=== PATIENT | female | born 2005 | race Caucasian/White ===

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

== ENCOUNTER 2023-02-25 10:12 | Emergency (ER) | payer OTHER, BC, MEDICAID, SELFPAY ==
--- NOTE | 2023-02-25 10:15 | W.ED.ABDPA2 ---
HPI - Abdominal Pain General: Chief Complaint: Urogenital-Female Stated Complaint: ABD PAIN, n/v Time Seen by Provider: 02/25/23 10:13 Source: patient Mode of arrival: ambulatory History of Present Illness: 17-year-old female presents to the emergency room with complaints of low back pain and suprapubic discomfort. She was seen in urgent care they are concerned about a renal stone. She has no hematuria. No fever sweats chills no dysuria urgency or frequency. She has noticed that with movement the pain is worse. No vomiting no diarrhea. MD elicited complaint: abdominal pain Onset (ago): hour(s) Pain Consistency: constant Location: Suprapubic and Other (Lumbosacral region) Severity: moderate Quality: cramping Exacerbating factors: movement Relieving factors: rest Associated Symptoms: Denies anorexia, belching, bloating, change in bowel habits, change in stool character, chills, coffee ground emesis, constipation, GI cramping, diarrhea, dyspepsia, dysuria, excessive flatus, fever(s), heartburn, hematochezia, hematuria, hematemesis, fecal incontinence, loose stools, melena, nausea, poor appetite, syncope and vomiting Review of Systems Const: Denies: fever(s), chills, fatigue or malaise ENMT: Denies: throat pain, ear or mastoid pain, nasal discharge or nasal congestion Card: Denies: chest pain or syncope Resp: Denies: dyspnea, productive cough or non-productive cough GI: Reports: abdominal pain; Denies: nausea, vomiting, hematemesis, coffee ground emesis, heartburn, diarrhea, constipation, bloating, GI cramping, belching, excessive flatus, fecal incontinence, change in bowel habits, change in stool character, hematochezia or melena : Denies: flank pain, difficulty voiding, dysuria, urinary frequency, urinary urgency or hematuria Musc: Reports: back pain Skin/Breast: Denies: rash or pruritus PFSH ED PFSH: Social History Smoking and tobacco status: never smoked Alcohol intake: never Substance/Drug Use: never Physical Exam Const: GENERAL APPEARANCE: cooperative and comfortable ORIENTATION/CONSCIOUSNESS: Yes awake, Yes oriented to person, Yes oriented to place and Yes oriented to time HENMT: COMMON NORMALS: normocephalic, atraumatic and hearing grossly normal bilaterally HEAD & SCALP: normocephalic and atraumatic Resp: COMMON NORMALS: normal respiratory effort, No retractions, No use of accessory muscles and clear to auscultation bilaterally AUSCULTATION: clear to auscultation bilaterally Cardio: COMMON NORMALS: regular rate, regular rhythm and No murmurs present (Cardio) RATE: regular rate RHYTHM: regular rhythm GI: COMMON NORMALS: Soft to palpation and No hepatosplenomegaly present AUSCULTATION: Yes normoactive bowel sounds PALPATION: Yes Soft to palpation, No Tenderness to palpation present (GI), No Guarding due to palpation present (GI) and Yes No hepatosplenomegaly present : COMMON NORMALS: Yes no CVA tenderness BLADDER/KIDNEY EXAM: Yes no CVA tenderness Back/Pelvis: COMMON NORMALS: no CVA tenderness OTHER: Pain in the lumbosacral area mildly reproducible with palpation Extremity: COMMON NORMALS: normal to inspection, capillary refill normal, no clubbing, cyanosis or edema, no calf tenderness and no pedal edema OTHER: Straight leg raising negative sensation lower extremities normal Neuro: SENSORIUM/ORIENTATION: Yes oriented to person, Yes oriented to place and Yes oriented to time Skin: COMMON NORMALS: no rashes or lesions noted GENERAL SKIN EXAM: no rashes or lesions noted OTHER: No evidence of zoster Course Vital Signs: Vital signs: Vital Signs Temperature 99.0 F 02/25/23 10:27 Pulse Rate 75 02/25/23 10:27 Respiratory Rate 18 02/25/23 10:27 Blood Pressure 134/75 02/25/23 10:27 Pulse Oximetry 100 02/25/23 10:27 Oxygen Delivery Me thod Room Air 02/25/23 10:27 MDM - Abdominal Pain Medical Decision Making Laboratories and CT were unremarkable. There is no evidence of acute appendicitis kidney stones kidney infection or bladder infection. No bowel abnormalities or pelvic abnormalities on the CT. She did complain of some low back pain at the lumbosacral junction and think some of this may be musculoskeletal we did not see a significant mount of fluid in the pelvis on the CT. Will discharge home with diclofenac can use ondansetron as needed advance diet as tolerated if not improving follow-up with primary care. Labs and imaging reviewed with the patient. Medical Records I reviewed the patient's medical records. Lab Data I reviewed the patient's lab results. 02/25/23 10:44 02/25/23 10:44 Labs/Radiology: Radiology Impressions Abdomen/Pelvis CT 02/25/23 11:16 IMPRESSION: No acute findings. Laboratory Results WBC 13.0 10^3/uL (4.5-13.0) 02/25/23 10:44 RBC 4.53 10^6/uL (4.1-5.3) 02/25/23 10:44 Hgb 14.1 g/dL (11.5-15.3) 02/25/23 10:44 Hct 43.7 % (37.0-47.0) 02/25/23 10:44 MCV 96.5 fl (81-99) 02/25/23 10:44 MCH 31.1 pg (28.0-34.0) 02/25/23 10:44 MCHC 32.3 g/dL (30.0-36.0) 02/25/23 10:44 RDW 13.1 % (12.1-15.1) 02/25/23 10:44 Plt Count 169 10^3/cmm (130-400) 02/25/23 10:44 MPV 10.7 fL (7.4-10.4) H 02/25/23 10:44 Neut % (Auto) 82.0 % 02/25/23 10:44 Lymph % (Auto) 9.8 % 02/25/23 10:44 [place] % (Auto) 7.5 % 02/25/23 10:44 Eos % (Auto) 0.0 % 02/25/23 10:44 Baso % (Auto) 0.2 % 02/25/23 10:44 Neut # (Auto) 10.68 10^3/uL (1.8-8.0) H 02/25/23 10:44 Lymph # (Auto) 1.3 10^3/uL (1.5-6.5) L 02/25/23 10:44 [place] # (Auto) 1.0 10^3/uL (0.2-0.9) H 02/25/23 10:44 Eos # (Auto) 0.0 10^3/uL (0.0-0.8) 02/25/23 10:44 Baso # (Auto) 0.0 10^3/uL (0.0-0.1) 02/25/23 10:44 Nucleated RBC % (auto) 0 % 02/25/23 10:44 Nucleated RBCs # 0.0 /100WBC 02/25/23 10:44 Sodium 139 mmol/L (136-145) 02/25/23 10:44 Potassium 4.1 mmol/L (3.5-5.1) 02/25/23 10:44 Chloride 103 mmol/L (98-107) 02/25/23 10:44 Carbon Dioxide 24 mmol/L (22-29) 02/25/23 10:44 Anion Gap 16.1 (5-19) 02/25/23 10:44 BUN 11 mg/dL (6-20) 02/25/23 10:44 Creatinine 0.7 mg/dL (0.5-0.9) 02/25/23 10:44 GFR Calculation 107.8 mL/min (90-130) 02/25/23 10:44 Glucose 79 mg/dL (65-115) 02/25/23 10:44 Calculated Osmolality 286 mOsm/kg (285-295) 02/25/23 10:44 Calcium 9.4 mg/dL (8.5-10.5) 02/25/23 10:44 Total Bilirubin 0.8 mg/dL (0.15-1.2) 02/25/23 10:44 AST 15 U/L (0-32) 02/25/23 10:44 ALT 10 U/L (0-33) 02/25/23 10:44 Alkaline Phosphatase 90 U/L (35-105) 02/25/23 10:44 Total Protein 7.5 g/dL (6.6-8.7) 02/25/23 10:44 Albumin 4.7 g/dL (3.5-5.2) 02/25/23 10:44 Globulin 2.8 g/dL (1.3-4.6) 02/25/23 10:44 Lipase 26 U/L (13-60) 02/25/23 10:44 HCG, Qual Negative (Negative) 02/25/23 10:44 Urine Color Yellow (Yellow) 02/25/23 10:25 Urine Appearance Sl hazy (CLEAR) A 02/25/23 10:25 Urine pH 6 (5-7) 02/25/23 10:25 Ur Specific [place] 1.015 (1.005-1.030) 02/25/23 10:25 Urine Protein Neg (Negative) 02/25/23 10:25 Urine Glucose (UA) Norm (Normal) 02/25/23 10:25 Urine Ketones Negative (Negative) 02/25/23 10:25 Urine Blood Trace (Negative) H 02/25/23 10:25 Urine Nitrate Negative (Negative) 02/25/23 10:25 Urine Bilirubin Neg (Negative) 02/25/23 10:25 Urine Urobilinogen Norm mg/dL (Negative) 02/25/23 10:25 Ur Leukocyte Esterase 1+ (Negative) H 02/25/23 10:25 Urine RBC None /hpf (0-2) 02/25/23 10:25 Urine WBC 0-4 /hpf (0-5) H 02/25/23 10:25 Ur Squamous Epith Cells None /hpf (0-5) 02/25/23 10:25 Amorphous Sediment Not Reportable 02/25/23 10:25 Urine Bacteria Trace /hpf (NONE) 02/25/23 10:25 Discharge Plan Discharge Patient Disposition: Home Clinical Impression: Abdominal pain, Back pain Condition: Stable Prescriptions: New diclofenac sodium 75 mg tablet,delayed release (DR/EC) 75 mg PO Q12H PRN (Reason: pain) Qty: 20 0RF ondansetron HCl 4 mg tablet 4 mg PO Q6H PRN (Reason: nausea and vomiting) Qty: 20 0RF No Action Enskyce 0.15-0.03 mg tablet See Rx Instructions .ROUTE .COMPLEX Rx Instructions: 1 tab as directed Discharge Orders: Discharge ED (Routine); Ordered 02/25/23 Ordered By: Osito Sotelo Referrals: Concepcion Saleh MD [Primary Care Provider] - Discharge Diet: Usual diet Discharge Activity: Increase activity as tolerated Patient Instructions: Abdominal Pain (ED), Opioid Safety, Pain Management Activity Restrictions/Additional Instructions: Oral all unremarkable. No evidence of appendicitis gynecological issues no evidence of urinary tract infection or nephrolithiasis. Use diclofenac as needed and follow-up with your doctor if not improving. Coding Level of Care Code ED Manager [employer] for [employer]
[2023-02-25 10:25] VITALS: BMI 24.0
[2023-02-25 10:27] VITALS: BP 134/75; PULSE 75; RESP 18; TEMP 37.2; O2SAT 100
[2023-02-25 11:00] LABS: Basophils % 0.2 %; Hematocrit 43.7 % (37.0-47.0); Hemoglobin 14.1 g/dL (11.5-15.3); Lymphocytes # 1.3 10^3/uL (1.5-6.5); Lymphocytes % 9.8 %; Mean Corpuscular HGB Conc 32.3 g/dL (30.0-36.0); Mean Corpuscular Hemoglobin 31.1 pg (28.0-34.0); Mean Corpuscular Volume 96.5 fl (81-99); Mean Platelet Volume 10.7 fL (7.4-10.4); Monocytes % 7.5 %; Neutrophils # 10.68 10^3/uL (1.8-8.0); Nucleated Red Blood Cells % 0 %; Platelet Count 169 10^3/cmm (130-400); Red Blood Count 4.53 10^6/uL (4.1-5.3); Red Cell Distribution Width 13.1 % (12.1-15.1)
[2023-02-25 11:09] LABS: Add Urine Microscopic? YES; Bilirubin Urine Neg (Negative); Blood Urine Trace (Negative); Glucose Urine UA Norm (Normal); Ketones Urine Negative (Negative); Leukocyte Esterase Urine 1+ (Negative); Nitrate Urine Negative (Negative); Protein Urine Neg (Negative); Specific Gravity, Urine 1.015 (1.005-1.030); Urine Appearance SL Hazy (CLEAR); Urine Color Yellow (Yellow); Urobilinogen Urine Norm (Negative); pH Urine 6 (5-7)
[2023-02-25 11:10] LABS: Add Urine Culture? No; Bacteria Urine TRACE /hpf; WBC Urine 0-4 /hpf (0-5)
--- NOTE | 2023-02-25 11:16 | CTR_ITS ---
PROCEDURE INFORMATION: Exam: CT Abdomen And Pelvis Without Contrast Exam date and time: 02/25/2023 11:29 AM Age: 17 years old Clinical indication: Abdominal pain; Generalized; Prior surgery; Surgery date: 6+ months; Surgery type: Spleen, small intestine; Patient HX: C/O nausea, vomiting, chills x 2 days and flank pain, dysuria, and urinary urgency x 7 days. TECHNIQUE: Imaging protocol: Computed tomography of the abdomen and pelvis without contrast. Radiation optimization: All CT scans at this facility use at least one of these dose optimization techniques: automated exposure control; mA and/or kV adjustment per patient size (includes targeted exams where dose is matched to clinical indication); or iterative reconstruction. REPORTING DATA: Count of CT and Cardiac NM exams in prior 12 months: This patient has received 0 known CTs and 0 known cardiac nuclear medicine studies in the 12 months prior to the current study. COMPARISON: No relevant prior studies available. RADIATION DOSE METRICS: Total DLP (mGy-cm): 457.52 FINDINGS: Liver: Normal without focal lesions. Gallbladder and bile ducts: Normal. No calcified stones. No ductal dilation. Pancreas: Normal without ductal dilatation. Spleen: Normal. Adrenal glands: Normal. No mass. Kidneys and ureters: Normal. No hydronephrosis. Stomach and bowel: Unremarkable. No obstruction. No mucosal thickening. Appendix: No evidence of appendicitis. Intraperitoneal space: No free air, free fluid, or well-organized fluid collection. Vasculature: Unremarkable. No abdominal aortic aneurysm. Lymph nodes: No enlarged lymph nodes. Urinary bladder: Unremarkable as visualized. Reproductive: Unremarkable as visualized. Bones/joints: Unremarkable. No acute fracture. Soft tissues: Unremarkable. CT/CT abdomen pelvis con [id number] IMPRESSION: No acute findings.
[2023-02-25 11:19] LABS: HCG, Serum Qual Negative (Negative)
[2023-02-25 11:25] LABS: Alanine Aminotransferase 10 U/L (0-33); Albumin Level 4.7 g/dL (3.5-5.2); Alkaline Phosphatase 90 U/L (35-105); Anion Gap 16.1 (5-19); Aspartate Amino Transferase 15 U/L (0-32); Blood Urea Nitrogen 11 mg/dL (6-20); Calcium 9.4 mg/dL (8.5-10.5); Carbon Dioxide 24 mmol/L (22-29); Chloride 103 mmol/L (98-107); Creatinine Clr Calc Pharmacy 118.8105; Globulin 2.8 g/dL (1.3-4.6); Glomerular Filtration Rate 107.8 mL/min (90-130); Glucose 79 mg/dL (65-115); Lipase 26 U/L (13-60); Osmolality Calculated 286 mOsm/kg (285-295); Potassium 4.1 mmol/L (3.5-5.1); Sodium 139 mmol/L (136-145); Total Bilirubin 0.8 mg/dL (0.15-1.2); Total Protein 7.5 g/dL (6.6-8.7)
== END 2023-02-25 13:41 | disposition home or self-care (01) ==
PROVIDERS: Physician Assistant; Emergency Provider Family Medicine; PCP Family Medicine
DX: R10.9 Unspecified abdominal pain (principal); M54.50 Low back pain, unspecified; R10.30 Lower abdominal pain, unspecified
CPT/HCPCS: 36415; 74176; 80053; 81000; 81001; 83690; 84703; 85025; 99284